=== PATIENT | female | born 1950 | race Caucasian/White ===

== ENCOUNTER 2021-11-16 14:23 | Outpatient (REF) | payer BC, MEDICARE, SELFPAY ==
[2021-11-16 14:44] LABS: Hematocrit 43.9 % (37.0-47.0); Hemoglobin 14.6 g/dl (12.0-16.0); Mean Corpuscular HGB Conc 33.3 g/dl (31.0-35.0); Mean Corpuscular Hemoglobin 30.2 pg (27.0-33.0); Mean Corpuscular Volume 90.9 fL (80.0-98.0); Mean Platelet Volume 8.9 fL (9.4-12.3); Platelet Count 282 X10*3/uL (160-400); Red Blood Count 4.83 X10*6/uL (4.20-5.50); White Blood Count 7.5 X10*3/uL (4.8-10.8)
[2021-11-16 15:03] LABS: Alanine Aminotransferase 32 U/L (0-31); Albumin Level 4.3 g/dL (3.5-5.0); Alkaline Phosphatase 79 U/L (39-117); Anion Gap 13 (12-20); Aspartate Amino Transferase 37 U/L (5-31); Bilirubin Direct 0.2 mg/dL (0.0-0.5); Bilirubin Total 0.4 mg/dL (0.0-1.0); Blood Urea Nitrogen 18 mg/dL (9-16); Calcium 9.6 mg/dL (8.4-10.2); Carbon Dioxide 26 mmol/L (22-29); Chloride 104 mmol/L (96-108); Cholesterol 280 mg/dL; Estimated Glomerular Filt Rate > 60; Glucose Random 95 mg/dL (60-115); HDL Cholesterol 56 mg/dL; LDL Cholesterol Calculated 203 mg/dl; Potassium 4.3 mmol/L (3.3-5.1); Sodium 139 mmol/L (135-145); Total Protein 7.4 g/dL (6.5-8.0); Triglycerides 107 mg/dL
[2021-11-16 15:25] LABS: Thyroid Stimulating Hormone 1.77 uIU/mL (0.32-4.0)
[2021-11-22 16:01] LABS: Vitamin D 25-OH, D2 <4 ng/mL; Vitamin D 25-OH, D3 35 ng/mL; Vitamin D 25-OH, Total 35 ng/mL (30-100)
== END 2021-11-16 14:24 | disposition home or self-care (01) ==
LOC: HO.LAB 14:23
PROVIDERS: PCP Internal Medicine; Visit Provider Internal Medicine
DX: E78.00 Pure hypercholesterolemia, unspecified (principal)
CPT/HCPCS: 36415; 80048; 80061; 80076; 82306; 84443; 85027

== ENCOUNTER 2023-04-11 13:03 | Outpatient (AMB) | payer MEDICARE, BC, SELFPAY ==
--- NOTE | 2023-04-11 13:05 | MHC.OFFWIV ---
Intake Vital Signs 04/11/23 13:15 Height 4 ft 11 in Weight 144 lb 6 oz BMI 29.2 BP 140/72 H Blood Pressure Location Rt brachial Position Sitting Pulse 97 Pulse Source Pulse Oximeter Temp 97.4 F Temp Source Temporal Artery Scan Pulse Oximetry (%) 100 Oxygen Delivery Method Room Air Intake Visit Reasons: EP ear ache, cough for 3 weeks [id number] Intake Note: Pt is here c/o bilateral ear ache and on going cough for three weeks. Patient Tobacco Use Status: Never used Tobacco Allergies No Known Allergies Allergy (Verified 04/11/23 13:05) Do you need a note to return to daycare/school/sports/work: No HPI HPI Comments History of Present Illness Details The patient presents to urgent care for evaluation of ongoing cold. She states that she has had cold symptoms x3 weeks with ongoing cough. The cough does not keep her up at night she will occasionally take Benadryl which is helpful. She also has congestion in her ears with intermittent pain in the right ear. No fever chills no nausea vomiting chest pain or shortness of breath. [facility] Medical History (Updated 11/20/21 @ 15:40 by Srini Reyes MD) Borderline hypercholesterolemia Surgical History No history of previous surgery Family History Mother No problems noted. Father No problems noted. Social History Housing: House Alcohol intake: current Alcohol intake frequency: holidays/special occasions only Alcohol type: beer and wine Patient Tobacco Use Status: Never used Tobacco e-Cigarette/Vaping Use: Never Used Second Hand Smoke Exposure: No service: No Current occupational status: retired Cognitive needs: No Hearing needs: No Vision needs: No Physical Exam Vital Signs: Last Vital Signs Temp 97.4 F 04/11/23 13:15 Pulse 97 04/11/23 13:15 BP 140/72 H 04/11/23 13:15 Pulse Ox 100 04/11/23 13:15 Oxygen Delivery Method Room Air 04/11/23 13:15 BMI result Body Mass Index 29.2 Const General: healthy appearing and no acute distress HEENT Ears: external ears normal and TM's normal bilaterally Mouth: Normal oral and palatal mucosa present Resp Effort & Inspection: normal respiratory effort and able to speak in complete sentences Auscultation: clear to auscultation bilaterally Cardio Rate: regular rate Rhythm: regular rhythm Assessment & Plan Assessment & Plan (1) URI (upper respiratory infection): Code(s): J06.9 - Acute upper respiratory infection, unspecified Plan Patient's symptoms consistent with ongoing viral illness. No antibiotics indicated patient well-appearing with no focal signs of bacterial illness. Recommend supportive care for likely ongoing viral illness. Patient well-appearing and stable for outpatient follow-up. Coding Level of Care Code Est Pt Level 3 (52894) Diagnoses URI (upper respiratory infection) J06.9
[2023-04-11 13:15] VITALS: BP 140/72; PULSE 97; TEMP 36.3; O2SAT 100; BMI 29.2
== END 2023-04-11 13:35 | disposition home or self-care (01) ==
PROVIDERS: PCP Internal Medicine; Visit Provider Emergency Medicine
DX: J06.9 Acute upper respiratory infection, unspecified (principal)
CPT/HCPCS: 99213

== ENCOUNTER 2025-02-06 11:21 | Outpatient (AMB) | payer MEDICARE, BC, SELFPAY ==
--- OUTSIDE RECORDS SUMMARY | 2025-02-06 11:23 | XMS_ITS | Clinical Summary ---
Author Organization [employer] Address [address] [place] [address] Care Team Providers Care Slider Assembler Name Role Phone Unavailable Primary Care Provider Unavailabl e Immunizations Immunization Administration Dates Next Due Influenza, seasonal, injectable, preservative fr ee 02/24/2024 Social History Tobacco Use Types Packs/Day Years Used Date Smoking Tobacco: Never Assessed Comments Unknown Sex and Gender Information Value Date Recorded Sex Assigned at Female 04/02/2022 10:39 AM EDT Legal Sex Female 10:39 AM EDT Gender Identity Female 04/02/2022 10:39 AM EDT Sexual Orientation Choose not to disclose 2021 10:39 AM EDT Plan of Treatment Health Maintenance Due Date Last Done Comments CT Colonography 1951 Colonoscopy 1951 Colorectal Cancer Screening 1951 Depression Screening 1951 FIT DNA/Cologuard 1951 FIT 1951 FOBT 1951 SDOH Screening 1951 Sigmoidoscopy 1951 Alcohol/Substance Use Screening 1963 Tobacco Screening 1963 Hepatitis C Screening 1969 DTaP/Tdap/Td Vaccines (1 - Tdap) 1970 Mammogram 1991 Pneumococcal Vaccine: 50+ Years (1 of 1 - PCV) 2001 Zoster Vaccines (1 of 2) 2001 COVID-19 Vaccine (4 - 2023- season) 2024 06/08/2021, 09/05/2020, 08/14/2020 Influenza Vaccine (#1) 2025 , 03/08/2023, 03/19/2022, Additional history exists RSV Patients and Patients Aged 60 years or older (1 - 1-dose 75+ series) 2026 HIB Vaccines Aged Out No longer eligi ble based on patient's age to complete this topic HPV Vaccines Aged Out No longer eligi ble based on patient's age to complete this topic Hepatitis A Vaccines Aged Out No long er eligible based on patient's age to complete this topic Hepatitis B Vaccines Aged Out No long er eligible based on patient's age to complete this topic IPV Vaccines Aged Out No longer eligi ble based on patient's age to complete this topic Meningococcal B Vaccine Aged Out No l onger eligible based on patient's age to complete this topic Meningococcal Vaccine Aged Out No [place] eligible based on patient's age to complete this topic RSV under 20 months Aged Out No longe r eligible based on patient's age to complete this topic Rotavirus Vaccines Aged Out No longer eligible based on patient's age to complete this topic Insurance [facility] HMO MEDICARE
[2025-02-06 11:39] VITALS: BP 144/80; PULSE 91; RESP 15; TEMP 36.9; O2SAT 97; BMI 27.1
--- NOTE | 2025-02-06 11:39 | MHC.OFFWIV ---
Intake Vital Signs 02/06/25 11:39 Weight 139 lb Intake Visit Reasons: EP-UTI Patient Tobacco Use Status: Never used Tobacco Allergies No Known Allergies Allergy (Verified 02/06/25 11:39) PFSH Medical History (Updated 11/20/21 @ 15:40 by Srini Reyes MD) Borderline hypercholesterolemia Surgical History No history of previous surgery Family History Mother No problems noted. Father No problems noted. Social History Housing: House Alcohol intake: current Alcohol intake frequency: holidays/special occasions only Alcohol type: beer and wine Patient Tobacco Use Status: Never used Tobacco e-Cigarette/Vaping Use: Never Used Second Hand Smoke Exposure: No service: No Current occupational status: retired Cognitive needs: No Hearing needs: No Vision needs: No Assessment & Plan Assessment & Plan Orders: Orders AMB Urinalysis Automated Today Z13.9 - Encounter for screening, unspecified Coding
--- NOTE | 2025-02-06 11:42 | AM.OFFWIN_ITS ---
Intake Vital Signs 02/06/25 11:39 Height 5 ft Weight 139 lb BMI 27.1 BP 144/80 H Blood Pressure Location Rt brachial Position Sitting Respiration 15 Pulse 91 Pulse Source Pulse Oximeter Temp 98.4 F Temp Source Oral Pulse Oximetry (%) 97 Oxygen Delivery Method Room Air Intake Visit Reasons: EP-UTI Intake Note: Pt is here today c/o burnign upon urination and frequency x2days Patient Tobacco Use Status: Never used Tobacco Allergies No Known Allergies Allergy (Verified 02/06/25 12:03) Medication List - Last Reconciled 02/06/25 by RIAN Abdalla- No Known Home Meds HPI HPI Comments History of Present Illness Details History of Present Illness - The patient is a 74-year-old female pr esenting with urinary tract infection (UTI) sx - Symptoms for UTI started about 4 weeks ago: frequent urination and burning. - Denies fever, chills, nausea, or vomit ing. - Significant life stressors and anxiety due to family health issues. - Reports sleep disturbances high stres s level noted. - Consumes large amounts of coffee and o ccasional alcohol. Review of Systems - Genitourinary: Reports frequent urinat ion and burning sensation. Denies fever, chills, nausea, or vomiting. - Neurological: Reports hand tremors. - Psychiatric: Reports stress, anxiety, difficulty sleeping. Denies any psychiatric history. - Gastrointestinal: Denies nausea or vom iting. Physical Exam General: Well developed, well nourished, in no acute distress. Appears stated age. Head: Normocephalic, atraumatic. Eyes: Pupils are equal, round and reactive to light and accommodation. Conjunctivae are clear. Lungs: Clear to auscultation bilaterally. No rales, rhonchi or wheeze noted. Good air flow in all benitez. Heart: Regular rate and rhythm. No murmurs, click, rubs or gallops are noted. Abdomen: Bowel sounds present in all quadrants. The abdomen is soft, nontender, with no masses or organomegaly noted. No hernias are noted. Some discomfort noted upon palpation of the bladder area, but no pain. No CVAT Psych: Mood and affect appropriate,tearful when talking about struggles. Results - Labs: Initial urine test showed hematu manoj and presence of bacteria. Discussion Notes I discussed with the patient the possibility of a urinary tract infection and explained the initial findings of blood and bacteria in her urine. I advised initiating treatment with Cefuroxime promptly and indicated that further urine tests are being conducted for confirmation and appropriate adjustment of antibiotics if necessary. We discussed the presence of anxiety and sleep disturbances potentially exacerbated by personal and familial stressors. I recommended starting prazosin for sleep disturbances and prescribed an additional medication for daytime anxiety management, sertraline. Informed the patient about the importance of follow-up care with her primary doctor, Dr. Simpson, to assess the effectiveness of therapies and address ongoing mental health support. Additionally, I provided reassurance and support regarding her caregiving stress and encouraged seeking mental health counseling as needed. Patient was given time to ask questions. All questions were answered to their satisfaction. Assessment and Plan 1. Urinary Tract Infection (UTI) Sx - Treat with Cefuroxime 500 mg BID for f israel days. - Conduct urine culture; adjust treatmen t based on results. - Encourage increased fluid intake. 2. Anxiety - Manage stress and anxieties with prazo sin for sleep. - Start sertraline. Message sent to PCP office to coordinate fu - Suggest counseling. 3. Sleep Disturbance - Use prazosin for sleep; monitor for he adaches as this is a side effect. Patient Instructions - Take Cefuroxime as directed, twice a d ay for five days. - Drink plenty of water every day. - Take the prescribed sleep medication a t bedtime to help sleep. - Use the daytime anxiety medication as directed. - Contact the office immediately if symp toms worsen. - Follow up with Dr. Simpson as yareli eduled. - Consider reaching out to a counselor f or managing stress. Consent Patient was informed and verbally consented to the use of an ambient scribe for clinic note documentation during this visit. Total time spent caring for the patient today was 34 minutes. This includes time spent before the visit reviewing the chart, time spent during the visit, and time spent after the visit on documentation, reviewing laboratory results, diagnostic imaging, medications, performing a medically necessary evaluation, counseling on diagnoses, care coordination, ordering appropriate tests, ordering appropriate medications, review of tests performed by other providers, reporting test results with the patient, communication with other healthcare providers. [facility] Medical History (Updated 02/06/25 @ 15:44 by Margarita Whipple, [facility]) Borderline hypercholesterolemia Surgical History No history of previous surgery Family History Mother No problems noted. Father No problems noted. Social History Housing: House Alcohol intake: current Alcohol intake frequency: holidays/special occasions only Alcohol type: beer and wine Patient Tobacco Use Status: Never used Tobacco e-Cigarette/Vaping Use: Never Used Second Hand Smoke Exposure: No service: No Current occupational status: retired Cognitive needs: No Hearing needs: No Vision needs: No Physical Exam Vital Signs: Last Vital Signs Temp 98.4 F 02/06/25 11:39 Pulse 91 02/06/25 11:39 Resp 15 02/06/25 11:39 BP 144/80 H 02/06/25 11:39 Pulse Ox 97 02/06/25 11:39 Oxygen Delivery Method Room Air 02/06/25 11:39 BMI result Body Mass Index 27.1 Results AMB Urinalysis, Automated UA Leukoctes 500 Vernon/uL Last Edit by Jasmin English CMA on 02/06/25 11:49 UA Nitrite Negative Last Edit by Jasmin English CMA on 02/06/25 11:49 UA Urobilinogen 0.2 mg/dL Last Edit by Jasmin English CMA on 02/06/25 11:49 UA Protein 0 mg/dL Last Edit by Jasmin English CMA on 02/06/25 11:49 UA pH 6.0 Last Edit by Jasmin English CMA on 02/06/25 11:49 UA Blood 25 Maco/uL Last Edit by Jasmin English CMA on 02/06/25 11:49 UA Specific Cool 1.005 Last Edit by Jasmin English CMA on 02/06/25 11:49 UA Ketone Negative Last Edit by Jasmin English CMA on 02/06/25 11:49 UA Bilirubin 0 mg/dL Last Edit by Jasmin English CMA on 02/06/25 11:49 UA Glucose 0 mg/dL Last Edit by Jasmin English CMA on 02/06/25 11:49 Results Reviewed Results Reviewed: Laboratory Last Values Urine pH (Auto) 6.0 02/06/25 11:40 Specific Cool (Auto) 1.005 02/06/25 11:40 Urine Protein (Auto) 0 mg/dL 02/06/25 11:40 Glucose (UA)(Auto) 0 mg/dL 02/06/25 11:40 Urine Ketones (Auto) Negative 02/06/25 11:40 Urine Blood (Auto) 25 Maco/uL 02/06/25 11:40 Urine Nitrite (Auto) Negative 02/06/25 11:40 Urine Bilirubin (Auto) 0 mg/dL 02/06/25 11:40 Urine Urobilinogen (Auto) 0.2 mg/dL 02/06/25 11:40 Leukocyte Esterase (Auto) 500 Vernon/uL 02/06/25 11:40 Assessment & Plan Assessment & Plan (1) Dysuria: Code(s): R30.0 - Dysuria (2) Caregiver role strain: Code(s): Z63.8 - Other specified problems related to primary support group (3) Insomnia: Code(s): G47.00 - Insomnia, unspecified Qualifiers: Insomnia type: psychophysiologic Qualified Code(s): F51.04 - Psychophysiologic insomnia Plan . Orders: Orders AMB Urinalysis Automated Today Z13.9 - Encounter for screening, unspecified Urine Culture Today R30.0 - Dysuria Medications: New cefuroxime axetil 500 mg PO BID 10 tabs 0RF sertraline 50 mg PO DAILY 30 tabs 1RF prazosin 1 mg PO BEDTIME 30 caps 1RF Coding Level of Care Code Est Pt Level 4 (62572) Diagnoses Dysuria R30.0 Caregiver role strain Z63.8 Psychophysiological insomnia F51.04 Insomnia type: psychophysiologic
== END 2025-02-06 12:48 | disposition home or self-care (01) ==
LOC: HO.HMCWIC 11:21
PROVIDERS: PCP Internal Medicine; Visit Provider Nurse Practitioner Family
DX: R30.0 Dysuria (principal); Z63.8 Other specified problems related to primary support group; F51.04 Psychophysiologic insomnia; Z13.9 Encounter for screening, unspecified

== ENCOUNTER 2025-02-06 11:21 | Outpatient (REF) | payer MEDICARE, BC, SELFPAY | END 2025-02-06 11:22 | disposition home or self-care (01) | LOC: HO.LAB 11:21 | PROVIDERS: PCP Internal Medicine; Visit Provider Nurse Practitioner Family | DX: R30.0 Dysuria (principal); F51.04 Psychophysiologic insomnia; Z63.8 Other specified problems related to primary support group | CPT/HCPCS: 81003; 87086; 87088; 87186; 99212 ==